=== PATIENT | male | born 1975 ===

== ENCOUNTER 2024-12-15 06:18 | Day surgery (SDC) | payer OTHER, SELFPAY | END 2024-12-15 09:33 | disposition home or self-care (01) | LOC: GI 06:18 | PROVIDERS: ATTENDING PHYSICIAN Internal Medicine | DX: Z12.11 Encounter for screening for malignant neoplasm of colon (principal); D12.4 Benign neoplasm of descending colon; K63.5 Polyp of colon | CPT/HCPCS: 45385; 45380; 88305 ==

== ENCOUNTER → 2025-07-15 08:25 | Outpatient (REF) | payer OTHER, SELFPAY ==
[2025-07-15 09:59] LABS: Hematocrit 43.2 % (39.0-52.0); Hemoglobin 15.2 g/dL (13.0-18.0); Mean Corp Hgb Conc. 35.2 g/dL (33.0-37.0); Mean Corpuscular Volume 90.0 fL (80.0-94.0); Nucleated Red Blood Cells % 0 % (-); Platelet Count 267 10^3/uL (130-400); Red Cell Dist. Width 12.2 % (11.5-14.5)
[2025-07-15 10:36] LABS: Blood Urea Nitrogen 18 mg/dl (9-20); Calcium 9.6 mg/dl (8.4-10.2); Carbon Dioxide 25 mmol/L (22-30); Chloride 102 mmol/L (98-107); Glucose 163 mg/dl (70-99); HDL Cholesterol 34 mg/dl; Potassium 4.3 mmol/L (3.5-5.1); Sodium 136 mmol/L (135-145); eGFR > 60.00
[2025-07-15 10:49] LABS: LDL Cholesterol, Calculated 90 mg/dl; Very Low Density Lipoprotein 158 mg/dl (0-30)
[2025-07-15 11:10] LABS: TSH 1.53 uIU/ml (0.47-4.68)
[2025-07-15 11:14] LABS: LDL Cholesterol, Direct 52 mg/dl
[2025-07-18 06:32] LABS: Glycohemoglobin (HgbA1c) 6.6 % (4.0-5.9)
== END ==
LOC: REG 08:25
PROVIDERS: ATTENDING PHYSICIAN Internal Medicine
DX: Z00.00 Encounter for general adult medical examination without abnormal findings (principal); I10 Essential (primary) hypertension
CPT/HCPCS: 36415; 80048; 80061; 83036; 83721; 83970; 84153; 84154; 84270; 84402; 84403; 84443; 85025